=== PATIENT | female | born 1960 | race Caucasian/White ===

== ENCOUNTER 2016-07-28 11:59 | Day surgery (SDC) | payer BC ==
[~2016-07-28] VITALS: Ht 165.1 cm; Wt 69.5 kg
[~2016-07-28 11:59] MED LIST: ENAL1TAB PO; PANT40TA3 PO; SYN1 PO
[2016-07-28 13:42] VITALS: Ht 165.1 cm; Wt 69.5 kg
[2016-07-28] MEDS ORDERED: ATOR20TA38 PO (13:51)
[2016-07-28] MEDS ORDERED: PROPOFOL 20 ML ONE (14:56)
[2016-07-28] MEDS ORDERED: LIDOCAINE 2% (SDV) 5 ML INJ ONE (14:56)
[2016-07-28] MEDS ORDERED: MIDAZOLAM 1 MG/ML 2 ML INJ ONE (14:57)
[2016-07-28 15:09] VITALS: BP 138/65; PULSE 45; RESP 20
[2016-07-28 15:50] VITALS: BP 125/56; PULSE 79; RESP 18
--- NOTE | 2016-07-28 17:10 | GILP ---
DATE OF PROCEDURE: 07/28/2016 NAME OF PROCEDURE: Esophagogastroduodenoscopy with biopsies. SURGEON: Yocasta Elias MD. HISTORY AND INDICATIONS: The patient is being evaluated for dyspepsia, abdominal pain. PREMEDICATION: Monitored anesthesia care by anesthesiologist. INSTRUMENT USED: Olympus panendoscope. TECHNIQUE: After informed consent, with the patient/relatives understanding the procedure, its indic ations, potential risks and complications, including but not limited to: allergic reaction, bleeding , perforation or infection, and after all pertinent questions were answered to the patients satisfac tion, the patient/relatives signed witnessed informed consent. Following this, premedication was administered slowly IV push under careful cardiovascular and respi ratory monitoring with pulse oximetry, automatic blood pressure and hall monitor. Once the sedative effect was achieved the patient was place in the left lateral decubitus, the panen doscope was introduced and advanced under visual control. Careful examination of the upper gastrointestinal tract, both on insertion as well as withdrawal of the instrument disclosed the following findings: ESOPHAGUS: The distal esophagus shows significant erythema, edema and superficial erosion of the muc matt. Biopsies were obtained to rule out Zambrano's esophagus. There is a small hiatal hernia present as w ell. STOMACH: Upon entrance to the stomach air was insufflated, the gastric pham distended normally. Th e mucosa of the fundus, body and antrum of the stomach shows erythema and edema of the mucosa with s uperficial erosions in the antrum. Biopsies were obtained to rule out H. pylori infection. PYLORUS: The pylorus appears patent and within normal limits, with no evidence of gastric outlet obs truction. DUODENUM: The duodenal mucosa was carefully examined in the duodenal bulb as well as the second port ion of the duodenum and appears unremarkable with no evidence of duodenitis, ulcer or neoplasm. The instrument was then withdrawn, the patient tolerated the procedure well and was transfer out of the endoscopy suite awake, and in good condition to continue recovery under observation IMPRESSION: 1. Erosive esophagitis, rule out Zambrano's esophagus. Biopsies obtained. 2. Small hiatal hernia. 3. Gastritis, rule out Helicobacter pylori infection. Biopsies obtained. PLAN: The patient will be treated with PPIs. Pathology will be reviewed as soon as it is available. Further recommendations will depend on the patient's clinical course as well as review of biopsies . Dictated By: YOCASTA ELIAS MS/NTS Conf#: [id number] DID#: [id number]
== END 2016-07-28 16:15 | disposition home or self-care (01) ==
LOC: GIL 11:59
PROVIDERS: ATTEND Internal Medicine Gastroenterology
DX: K20.8 Other esophagitis (principal); K44.9 Diaphragmatic hernia without obstruction or gangrene; K29.70 Gastritis, unspecified, without bleeding; E03.9 Hypothyroidism, unspecified; I10 Essential (primary) hypertension; E78.5 Hyperlipidemia, unspecified
CPT/HCPCS: 43239; 88305; 88312; 88313; J2250; Z7610